=== PATIENT | female | born 1980 | race Caucasian/White ===

== ENCOUNTER 2025-10-15 17:06 | Outpatient (CLI) | payer BC, OTHER | END 2025-10-15 17:07 | disposition home or self-care (01) | LOC: CSHRAD 17:06 | PROVIDERS: ATTEND Nurse Practitioner Family | DX: M54.50 Low back pain, unspecified (principal); M25.562 Pain in left knee; M25.561 Pain in right knee; M47.816 Spondylosis without myelopathy or radiculopathy, lumbar region; M47.817 Spondylosis without myelopathy or radiculopathy, lumbosacral region; M17.0 Bilateral primary osteoarthritis of knee | CPT/HCPCS: 72100 ==